=== PATIENT | male | born 1995 | race Asian ===

== ENCOUNTER 2018-07-11 23:03 | Emergency (ER) | payer OTHER ==
[~2018-07-11] VITALS: Ht 170.2 cm; Wt 82.6 kg
[2018-07-11 23:11] VITALS: BP 153/105; Ht 170.2 cm; Wt 82.6 kg
== END 2018-07-12 00:59 | disposition home or self-care (01) ==
LOC: ED 23:03
DX: B02.9 Zoster without complications (principal)